=== PATIENT | male | born 1980 | race Caucasian/White ===

== ENCOUNTER → 2016-07-03 | Outpatient (CLI) | payer OTHER ==
[2016-07-03 14:55] LABS: BASO % 0.3 %; BASO ABS # 0.02 K/uL (0-0.2); COMPLETE YES; EOS % 1.5 %; HEMATOCRIT 46.4 % (42-52); IG% 0.1 %; LYMPH % 23.9 %; LYMPH ABS # 1.87 K/uL (1.2-3.4); MEAN CORPUSCULAR HEMOGLOBIN 31.9 pg (25-34); MEAN CORPUSCULAR HGB CONC 31.9 g/dl (32-36); MEAN PLATELET VOLUME 10.4 fL (7.4-10.4); MONO % 5.2 %; PLATELET COUNT 206 K/uL (130-400); RED BLOOD COUNT 4.64 M/uL (4.7-6.1); WHITE BLOOD COUNT 7.82 K/uL (4.8-10.8)
[2016-07-03 15:02] LABS: ALT/SGPT 27 U/L (12-78); BLOOD UREA NITROGEN 8 mg/dl (7-18); BUN/CREATININE RATIO 8.2 (10-20); CALCIUM 9.2 mg/dl (8.5-10.1); CARBON DIOXIDE 23 mmol/L (21-32); CHLORIDE 107 mmol/L (98-107); CHOLESTEROL 130 mg/dl (0-200); GLUCOSE 81 mg/dl (70-99); POTASSIUM 3.6 mmol/L (3.5-5.1); SODIUM 142 mmol/L (136-145)
[2016-07-03 15:04] LABS: ALB/GLOB RATIO 1.2 (0.9-2); ALKALINE PHOSPHATASE 127 U/L (45-117); AST/SGOT 16 U/L (15-37); CHOLESTEROL/HDL RATIO 3.6; HDL CHOLESTEROL 36 mg/dl; LDL CHOLESTEROL CALCULATED 73 mg/dl; TRIGLYCERIDES 105 mg/dl (0-150); VERY LOW DENSITY LIPOPROT CALC 21 mg/dl
== END | disposition home or self-care (01) ==
LOC: C.LABSPEC 11:00
PROVIDERS: ATTEND Family Medicine
DX: E78.2 Mixed hyperlipidemia (principal); K21.9 Gastro-esophageal reflux disease without esophagitis; J45.30 Mild persistent asthma, uncomplicated

== ENCOUNTER → 2016-10-03 | Outpatient (CLI) | payer OTHER ==
[2016-10-03 13:09] LABS: BASO % 0.3 %; BASO ABS # 0.02 K/uL (0-0.2); COMPLETE YES; EOS % 2.4 %; HEMATOCRIT 45.8 % (42-52); IG% 0.2 %; LYMPH % 25.5 %; LYMPH ABS # 1.51 K/uL (1.2-3.4); MEAN CELL VOLUME 100.4 fL (80-100); MEAN CORPUSCULAR HEMOGLOBIN 31.4 pg (25-34); MEAN CORPUSCULAR HGB CONC 31.2 g/dl (32-36); MEAN PLATELET VOLUME 10.3 fL (7.4-10.4); MONO % 5.2 %; NEUT % 66.4 %; PLATELET COUNT 157 K/uL (130-400); RED BLOOD COUNT 4.56 M/uL (4.7-6.1); WHITE BLOOD COUNT 5.91 K/uL (4.8-10.8)
[2016-10-03 13:43] LABS: ALT/SGPT 21 U/L (12-78); AST/SGOT 15 U/L (15-37); BLOOD UREA NITROGEN 12 mg/dl (7-18); BUN/CREATININE RATIO 9.9 (10-20); CARBON DIOXIDE 24 mmol/L (21-32); CHLORIDE 109 mmol/L (98-107); CHOLESTEROL 118 mg/dl (0-200); GLUCOSE 136 mg/dl (70-99); POTASSIUM 3.7 mmol/L (3.5-5.1); SODIUM 141 mmol/L (136-145); TRIGLYCERIDES 93 mg/dl (0-150); VERY LOW DENSITY LIPOPROT CALC 19 mg/dl
[2016-10-03 13:50] LABS: ALB/GLOB RATIO 1.1 (0.9-2); ALKALINE PHOSPHATASE 110 U/L (45-117); CALCIUM 9.1 mg/dl (8.5-10.1); CHOLESTEROL/HDL RATIO 3.4; HDL CHOLESTEROL 35 mg/dl; LDL CHOLESTEROL CALCULATED 64 mg/dl
== END | disposition home or self-care (01) ==
LOC: C.LABSPEC 12:55
PROVIDERS: ATTEND Family Medicine
DX: E78.2 Mixed hyperlipidemia (principal); K21.9 Gastro-esophageal reflux disease without esophagitis; J44.9 Chronic obstructive pulmonary disease, unspecified

== ENCOUNTER → 2017-04-03 | Outpatient (CLI) | payer OTHER ==
[2017-04-03 18:12] LABS: BASO % 0.7 %; BASO ABS # 0.04 K/uL (0-0.2); COMPLETE YES; EOS % 2.8 %; HEMATOCRIT 44.3 % (42-52); IG% 0.4 %; LYMPH ABS # 1.84 K/uL (1.2-3.4); MEAN CORPUSCULAR HEMOGLOBIN 34.1 pg (25-34); MEAN CORPUSCULAR HGB CONC 31.8 g/dl (32-36); MONO % 8.5 %; NEUT % 53.6 %; PLATELET COUNT 161 K/uL (130-400); RED BLOOD COUNT 4.14 M/uL (4.7-6.1); WHITE BLOOD COUNT 5.41 K/uL (4.8-10.8)
[2017-04-03 18:20] LABS: ALT/SGPT 24 U/L (12-78); AST/SGOT 15 U/L (15-37); BLOOD UREA NITROGEN 7 mg/dl (7-18); BUN/CREATININE RATIO 6.7 (10-20); CALCIUM 8.7 mg/dl (8.5-10.1); CARBON DIOXIDE 26 mmol/L (21-32); CHLORIDE 109 mmol/L (98-107); CHOLESTEROL 150 mg/dl (0-200); CREATININE 1.09 mg/dl (0.60-1.40); GLUCOSE 85 mg/dl (70-99); POTASSIUM 3.5 mmol/L (3.5-5.1); SODIUM 141 mmol/L (136-145)
[2017-04-03 18:23] LABS: ALB/GLOB RATIO 1.4 (0.9-2); ALKALINE PHOSPHATASE 107 U/L (45-117); CHOLESTEROL/HDL RATIO 3.8; HDL CHOLESTEROL 40 mg/dl; LDL CHOLESTEROL CALCULATED 80 mg/dl; TRIGLYCERIDES 152 mg/dl (0-150); VERY LOW DENSITY LIPOPROT CALC 30 mg/dl
== END | disposition home or self-care (01) ==
LOC: C.LABSPEC 17:45
PROVIDERS: ATTEND Family Medicine
DX: J44.9 Chronic obstructive pulmonary disease, unspecified (principal); E78.2 Mixed hyperlipidemia; K21.9 Gastro-esophageal reflux disease without esophagitis